=== PATIENT | male | born 1965 | race Caucasian/White ===

== ENCOUNTER 2020-05-17 07:22 | Outpatient (CLI) | payer OTHER ==
--- NOTE | 2020-05-17 11:00 | NM ---
HEPATOBILIARY SCAN: HISTORY:Right upper quadrant pain. No gallstones on ultrasound of 05/11/2020 RADIOPHARMACEUTICAL: 5.1 mCi Technetium 99m Mebrofenin injected intravenously FINDINGS: There is normal tracer extraction by the liver with normal excretion into the biliary tracts and smal l bowel loops and normal filling of the gallbladder. The calculated gallbladder ejection fraction following an oral fatty meal measures 29%. IMPRESSION:Chronic acalculous cholecystitis/gallbladder dyskinesia
== END 2020-05-17 07:23 | disposition home or self-care (01) ==
LOC: NM 07:22
PROVIDERS: ATTEND Physician Assistant
DX: R10.11 Right upper quadrant pain (principal)
CPT/HCPCS: 78227; A9537

== ENCOUNTER 2020-06-27 15:00 | Outpatient (CLI) | payer OTHER | END 2020-06-27 15:01 | disposition home or self-care (01) | LOC: LABBT 15:00 | PROVIDERS: ATTEND Specialist | DX: Z01.818 Encounter for other preprocedural examination (principal); K82.8 Other specified diseases of gallbladder | CPT/HCPCS: 93005; 93010 ==

== ENCOUNTER 2020-07-02 05:57 | Day surgery (SDC) | payer OTHER ==
[2020-06-29 14:03] VITALS: BMI 31.6
[2020-07-02] MEDS ORDERED: Ketorolac Tromethamine 30 MG/ML VIAL ONE (06:29)
[2020-07-02] MEDS ORDERED: Acetaminophen 500 MG TAB ONE (06:29)
[2020-07-02] MEDS ORDERED: Bupivacaine 0.25% HCL 30 ML VIAL ONE (06:32)
[2020-07-02] MEDS ORDERED: Lidocaine 1% w/Epinephrine 1:100K 20 ML VIAL ONE (06:32)
[2020-07-02] MEDS ORDERED: Fentanyl 100 MCG/2 ML VIAL ONE ×2 (06:38→09:35)
[2020-07-02] MEDS ORDERED: Famotidine/PF 20 mg/2ml Vial ONE (06:38)
[2020-07-02] MEDS ORDERED: SUGAMMADEX SODIUM 200 MG/2 ML VIAL ONE (06:38)
[2020-07-02] MEDS ORDERED: Midazolam HCl 2 mg/2 ml Vial ONE (07:29)
[2020-07-02] MEDS ORDERED: hydrALAZINE 20 MG/ML VIAL ONE (09:06)
[2020-07-02] MEDS ORDERED: PHENYLEPHRINE-NS 100 MCG/ML 10 ML SYRINGE ONE (09:52)
[2020-07-02] MEDS ORDERED: Lidocaine 1% PF 5 ML VIAL ONE (09:52)
[2020-07-02] MEDS ORDERED: Rocuronium Bromide 10 MG/ML (10ML VIAL) ONE (09:52)
[2020-07-02] MEDS ORDERED: ePHEDrine 50 MG/ML VIAL ONE (09:52)
[2020-07-02] MEDS ORDERED: PROPOFOL 200 MG/20 ML VIAL ONE (09:52)
[2020-07-02] MEDS ORDERED: Dexamethasone 20 MG/5 ML VIAL ONE (09:52)
[2020-07-02] MEDS ORDERED: Promethazine HCl 25 MG/ML VIAL ONE (10:22)
--- NOTE | 2020-07-02 22:57 | OP ---
DATE OF PROCEDURE: 07/02/2020 PREOPERATIVE DIAGNOSIS: Biliary dyskinesia. POSTOPERATIVE DIAGNOSIS: Biliary dyskinesia. OPERATION PERFORMED: Laparoscopic cholecystectomy. ANESTHESIA: General endotracheal. INDICATIONS: The patient is a 54-year-old white male. He presents with persistent right upper quadrant abdominal pain. Although he has no gallstones visible on ultrasound, he does have diminished ejection fraction. After discussing all options and possibilities, patient elected to proceed with laparoscopic cholecystectomy. He understands that there is a chance that this surgery will not lead to resolution of his pain. Additionally, patient is recognized to have an umbilical hernia and plan will be to repair this under the same anesthetic. DESCRIPTION OF OPERATION: Informed consent was obtained. Patient was taken to the operating room, where general endotracheal anesthesia was obtained with patient in supine position. Abdomen was prepped with ChloraPrep and draped in sterile fashion. Local anesthetic was infiltrated using 0.25% Marcaine with epinephrine. A 5 mm right upper quadrant incision was created through which a Veress needle was passed into the peritoneal cavity. Pneumoperitoneum established using carbon dioxide up to pressure of 15 mmHg. A 5 mm trocar port was passed through the same incision. Laparoscopic camera was passed through this port. Under direct vision, 2 additional 5 mm right upper quadrant ports were placed. The hernia that was visible at his umbilicus was There was an obvious defect. There were no peritoneal contents protruding through the defect. However, it appeared that the hernia contents were preperitoneal fat. A longitudinal incision was created directly over the hernia protrusion on the left side of the umbilicus. An 11 mm trocar port was then passed through that incision and through the defect into the abdominal cavity. Attention was turned to the gallbladder. The gallbladder was completely ensconced in fat and there was significant fatty change to the liver as well. The gallbladder was grasped and retracted in cephalad direction. I dissected through the fatty tissue at the apex of the gallbladder to carefully identify the cystic duct and cystic artery. These were each carefully dissected circumferentially and divided between clips leaving 2 on the side to remain within the abdomen. The gallbladder was then dissected out of the gallbladder fossa using electrocautery. Meticulous hemostasis was obtained. The gallbladder was then removed through the umbilical port site. The fascia was closed with a GraNee needle and 0 Vicryl suture in a [id number]-[id number]-phenz fashion. The right upper quadrant was inspected one final time. There was no evidence of bleeding. The area was irrigated and all irrigant was aspirated. All ports and instruments were removed under direct vision. Pneumoperitoneum was carefully evacuated. 0.25% Marcaine with epinephrine was infiltrated in each port site. The protruding preperitoneal fat was dissected out of the area of the umbilical hernia and then the skin was closed using 4-0 Monocryl subcuticular suture. Dermabond was placed externally. There were no complications. The patient tolerated the procedure well and was taken to recovery room in stable condition. Job ID: [id number]
== END 2020-07-02 11:10 | disposition home or self-care (01) ==
LOC: SDC 05:57
PROVIDERS: ATTEND Specialist
PROC: 0WQF0ZZ Repair Abdominal Wall, Open Approach (ICD-10-PCS; principal; 2020-07-02)
PROC: 0FT44ZZ Resection of Gallbladder, Percutaneous Endoscopic Approach (ICD-10-PCS; principal; 2020-07-02)
DX: K81.1 Chronic cholecystitis (principal); K82.8 Other specified diseases of gallbladder; K42.9 Umbilical hernia without obstruction or gangrene; E66.9 Obesity, unspecified; Z68.31 Body mass index [BMI] 31.0-31.9, adult; Z87.891 Personal history of nicotine dependence; Z79.82 Long term (current) use of aspirin; Z79.899 Other long term (current) drug therapy
CPT/HCPCS: 88304; J0360; J0690; J1100; J1885; J2250; J2550; J2704; J3010; J3490; S0020; S0028

== ENCOUNTER 2021-07-21 12:05 | Emergency (ER) | payer OTHER ==
[2021-07-22 12:25] LABS: SARS-CoV-2 PCR by NAA DETECTED (NotDetected)
== END 2021-07-21 13:10 | disposition home or self-care (01) ==
LOC: ERS 12:05
DX: U07.1 COVID-19 (principal)
CPT/HCPCS: 99283; U0003; U0005